=== PATIENT | male | born 1955 | race American Indian/Alaskan Native ===

== ENCOUNTER 2019-07-23 17:33 | Inpatient (IN) | payer MEDICARE ==
--- NOTE | 2019-07-23 17:46 | Emergency Department Report ---
Blank Doc - Documentation Documentation: 64-year-old male that presents with abdominal pain with osteomy complications. This initial assessment/diagnostic orders/clinical plan/treatment(s) is/are subject to change based on patient's health status, clinical progression and re- assessment by fellow clinical providers in the ED. Further treatment and workup at subsequent clinical providers discretion. Patient/guardians urged not to elope from the ED as their condition may be serious if not clinically assessed and managed. Initial orders include: 1- Patient sent to MAIN ED for further evaluation and treatment 2- labs 3- UA
[2019-07-23 19:01] LABS: Basophils % (Auto) 0.2 % (0.0-1.8); Eosinophils % (Auto) 0.3 % (0.0-4.3); Hematocrit 43.4 % (35.5-45.6); Hemoglobin 14.4 gm/dl (11.8-15.2); Lymphocytes # (Auto) 0.9 K/mm3 (1.2-5.4); Lymphocytes % (Auto) 12.8 % (13.4-35.0); Mean Corpuscular HGB Conc 33 % (32-34); Mean Corpuscular Volume 89 fl (84-94); Monocytes # (Auto) 0.4 K/mm3 (0.0-0.8); Monocytes % (Auto) 6.4 % (0.0-7.3); Platelet Count 186 K/mm3 (140-440); Red Blood Count 4.86 M/mm3 (3.65-5.03); Red Cell Distribution Width 13.7 % (13.2-15.2)
[2019-07-23 19:07] LABS: Alanine Aminotransferase 8 units/L (7-56); Albumin 4.3 g/dL (3.9-5); BUN/Creatinine Ratio 12; Blood Urea Nitrogen 13 mg/dL (9-20); Calcium 10.1 mg/dL (8.4-10.2); Hemolysis Index 18
[2019-07-23] MEDS ORDERED: ONDANSETRON 4 MG/2 ML INJ IV ONE (22:24)
[2019-07-23] MEDS ORDERED: MORPHINE 4 MG/1 ML INJ IV ONE (22:24)
[2019-07-23] MEDS ORDERED: SODIUM CHLORIDE 0.9% 1000 ML 1,000 ML IV ONE (22:24)
--- NOTE | 2019-07-23 22:39 | Emergency Department Report ---
ED Abdominal Pain HPI - General Chief Complaint: Abdominal Pain Stated Complaint: OSTOMY BAG BLOCKAGE Time Seen by Provider: 07/23/19 17:45 Source: patient Mode of arrival: Ambulatory Limitations: No Limitations - History of Present Illness Initial Comments: 64-year-old male with a past medical history of Crohn's disease and ileostomy since 1999 presents to the hospital complaining of no output from ostomy for at least 36 hours. He's had generalized intermittent cramping abdominal pain rated 10/10 in intensity that is worse with palpation. No alleviating factors reported. Patient does not take pain medication at home. He reports some nausea without vomiting. No fever. He cannot recall the name of his GI doctor or PMD. Severity scale (0 -10): 10 - Related Data Allergies Allergy/AdvReac Type Severity Reaction Status Date / Time No Known Allergies Allergy Unverified 07/23/19 17:36 ED Review of Systems ROS: Stated complaint: OSTOMY BAG BLOCKAGE Other details as noted in HPI Comment: All other systems reviewed and negative ED Past Medical Hx - Past Medical History Previous Medical History?: Yes Additional medical history: Chron's - Surgical History Past Surgical History?: Yes Additional Surgical History: Ileostomy s/t Chron's, colectomy. Back surgery - Social History Smoking Status: Never Smoker Substance Use Type: None ED Physical Exam - General Limitations: No Limitations - Other Other exam information: General: No acute distress Head: Atraumatic Eyes: normal appearance ENT: Moist mucous membranes Neck: Normal appearance, no midline tenderness Chest: Clear to auscultation bilaterally CV: Regular rate and rhythm Abdomen: Soft, normal bowel sounds, midline vertical surgical scar, right lower quadrant ostomy without any output in the bag. No ostomy herniation. Generalized tenderness Back: Normal inspection Extremity: Normal inspection infection, full range of motion Neuro: Alert O x 3, no facial asymmetry, speech clear, no gross motor sensory deficit Psych: Appropriate behavior Skin: No rash ED Course Vital Signs 07/23/19 07/23/19 07/23/19 17:45 21:55 22:17 Temperature 97.7 F 98.5 F 98.1 F Pulse Rate 64 73 62 Respiratory 18 20 15 Rate Blood Pressure 121/70 127/74 Blood Pressure 124/82 [Left] O2 Sat by Pulse 100 98 99 Oximetry 07/23/19 07/23/19 07/23/19 22:30 23:00 23:30 Temperature Pulse Rate Respiratory Rate Blood Pressure 127/76 138/78 137/79 Blood Pressure [Left] O2 Sat by Pulse 100 100 99 Oximetry - Consultations Consultation #1: 07/24/19 01:02 case d/w Gen surgeon Dr Johnson, since pt not vomiting no NGT now, if vomiting occurs NGT will be needed. Will eval pt in am. ED Medical Decision Making - Lab Data Result diagrams: 07/23/19 18:06 07/23/19 18:06 Lab Results 07/23/19 07/23/19 Range/Units 18:06 18:06 WBC 6.7 (4.5-11.0) K/mm3 RBC 4.86 (3.65-5.03) M/mm3 Hgb 14.4 (11.8-15.2) gm/dl Hct 43.4 (35.5-45.6) % MCV 89 (84-94) fl MCH 30 (28-32) pg MCHC 33 (32-34) % RDW 13.7 (13.2-15.2) % Plt Count 186 (140-440) K/mm3 Lymph % (Auto) 12.8 L (13.4-35.0) % [place] % (Auto) 6.4 (0.0-7.3) % Eos % (Auto) 0.3 (0.0-4.3) % Baso % (Auto) 0.2 (0.0-1.8) % Lymph # 0.9 L (1.2-5.4) K/mm3 [place] # 0.4 (0.0-0.8) K/mm3 Eos # 0.0 (0.0-0.4) K/mm3 Baso # 0.0 (0.0-0.1) K/mm3 Seg Neutrophils % 80.3 H (40.0-70.0) % Seg Neutrophils # 5.4 (1.8-7.7) K/mm3 Sodium 140 (137-145) mmol/L Potassium 4.8 (3.6-5.0) mmol/L Chloride 102.6 (98-107) mmol/L Carbon Dioxide 23 (22-30) mmol/L Anion Gap 19 mmol/L BUN 13 (9-20) mg/dL Creatinine 1.1 (0.8-1.5) mg/dL Estimated GFR > 60 ml/min BUN/Creatinine Ratio 12 % Glucose 92 (75-100) mg/dL Calcium 10.1 (8.4-10.2) mg/dL Total Bilirubin 0.90 (0.1-1.2) mg/dL AST 21 (5-40) units/L ALT 8 (7-56) units/L Alkaline Phosphatase 70 (35-129) units/L Total Protein 7.3 (6.3-8.2) g/dL Albumin 4.3 (3.9-5) g/dL Albumin/Globulin Ratio 1.4 % Lipase 23 (13-60) units/L - Radiology Data Radiology results: report reviewed CT of the abdomen and pelvis with contrast INDICATION: Abdominal pain, Crohn's disease COMPARISON: None FINDINGS: Lung bases are clear. Hypervascular area is seen in the left hepatic lobe which is nonspecific, either due to liver lesion o r shunting. Liver is otherwise unremarkable. A few low-density splenic lesions are likely cysts and benign. The pancreas is normal with no ductal dilation, mass or pancreatitis. The left kidney contains a 1 cm stone in the lower pole. Right renal calculi are seen with the right ureteral stent in place and slight right renal atrophy. No definite gallbladder or biliary tree abnormality. No fluid or adenopathy in the upper abdomen. CT of the pelvis demonstrates multiple fluid-filled small bowel loops with apparent prior colectomy. There is an ostomy present in the right lower quadrant but the distal small bowel loops are collapsed. Prostate is moderately enlarged. The distal ureteral stent is heavily encrusted with calcium. No bladder stones are seen. No pelvic fluid or adenopathy. No definite bowel wall thickening or edema. Postoperative changes of the lumbar spine are seen. IMPRESSION: Distal mechanical small bowel obstruction of moderate severity with other incidental findings as described. - Medical Decision Making + sbo without vomiting case d/w Dr Johnson will admit for further tx - Differential Diagnosis obstruction, ostomy blockage Critical Care Time: No Critical care attestation.: If time is entered above; I have spent that time in minutes in the direct care of this critically ill patient, excluding procedure time. ED Disposition Clinical Impression: SBO (small bowel obstruction), History of colectomy, Ileostomy dysfunction Disposition: OP ADMIT IP TO THIS HOSP Is pt being admited?: Yes Condition: Stable Time of Disposition: 01:05 (Dr Tuttle/hosp)
--- NOTE | 2019-07-24 00:45 | Cat Scan Report ---
CT of the abdomen and pelvis with contrast INDICATION: Abdominal pain, Crohn's disease COMPARISON: None FINDINGS: Lung bases are clear. Hypervascular area is seen in the left hepatic lobe which is nonspeci fic, either due to liver lesion or shunting. Liver is otherwise unremarkable. A few low-density splen ic lesions are likely cysts and benign. The pancreas is normal with no ductal dilation, mass or pancr eatitis. The left kidney contains a 1 cm stone in the lower pole. Right renal calculi are seen with t he right ureteral stent in place and slight right renal atrophy. No definite gallbladder or biliary t ree abnormality. No fluid or adenopathy in the upper abdomen. CT of the pelvis demonstrates multiple fluid-filled small bowel loops with apparent prior colectomy. There is an ostomy present in the right lower quadrant but the distal small bowel loops are collapsed . Prostate is moderately enlarged. The distal ureteral stent is heavily encrusted with calcium. No bl adder stones are seen. No pelvic fluid or adenopathy. No definite bowel wall thickening or edema. Pos toperative changes of the lumbar spine are seen. IMPRESSION: Distal mechanical small bowel obstruction of moderate severity with other incidental find ings as described. Automated exposure control was utilized to diminish radiation dose. Signer Name: Jose Cox MD Signed: 07/24/2019 12:40 AM Workstation Name: [id number]
--- NOTE | 2019-07-24 01:11 | History and Physical Report ---
<ROHINIFABRIZIO M. - Last Filed: 07/24/19 03:16> History of Present Illness Date of examination: 07/24/19 Date of admission: 07/24/2019 Chief complaint: SBO History of present illness: Patient is a 64-year-old male with a past medical history of Crohn's dx whom presents to [facility]. Patient states his concerns were lack of output for the past 36 hours from his ileostomy accompanied with abdominal cramping. His ileostomy was placed in 1999 after a perforated bowel. Currently the pain is described as a constant dull diffuse pain that intermittently becomes sharp and well localized. The intensity of the pain has been increasing over the past day, and on pain scale he now rates the pain 8 out of 10. He denies any recent history of fever, diarrhea or melena. Past History Past Medical History: other (as noted in HPI) Past Surgical History: Other (kidney stones, spine surgery (1997)) Social history: smoking (x 1 yr), alcohol abuse Family history: cancer, diabetes, hypertension Medications and Allergies Allergies Allergy/AdvReac Type Severity Reaction Status Date / Time No Known Allergies Allergy Unverified 07/23/19 17:36 Home Medications Medication Instructions Recorded Confirmed Last Taken Type No Known Home Medications [No 07/24/19 07/24/19 Unknown History Reported Home Medications] Review of Systems All systems: negative Constitutional: no fever, no chills, no sweats Ears, nose, mouth and throat: no decreased hearing, no nose pain, no nasal congestion Cardiovascular: no chest pain, no rapid/irregular heart beat, no high blood pressure Respiratory: no cough, no shortness of breath Gastrointestinal: abdominal pain, no nausea, no vomiting, no diarrhea Genitourinary Male: no urinary frequency, no urinary hesitancy Rectal: no pain, no incontinence Musculoskeletal: no neck stiffness, no neck pain, no arm numbness/tingling, no shooting leg pain, no redness of joints Integumentary: no rash Neurological: no head injury, no numbness, no tingling, no seizures, no lack of coordination Psychiatric: no suicidal ideation, no disorientation, no hallucinations Endocrine: no heat intolerance, no polyphagia, no excessive sweating Hematologic/Lymphatic: no easy bruising, no easy bleeding Allergic/Immunologic: no wheezing Exam - Physical Exam Narrative exam: General appearance: Present: Mild distress - EENT Eyes: Present: PERRL, EOM intact ENT: hearing intact - Neck Neck: Present: supple, normal ROM - Respiratory Respiratory effort: normal Respiratory: bilateral: CTA - Cardiovascular Rhythm: regular - Extremities Extremities: pulses intact Peripheral Pulses: within normal limits - Abdominal General gastrointestinal: Present: tender with palpation Localized gastrointestinal: tender: RUQ, ileostomy present - Integumentary Integumentary: Present: warm, dry - Musculoskeletal Musculoskeletal: strength equal bilaterally - Psychiatric Psychiatric: appropriate mood/affect - Neurologic Neurologic: CNII-XII intact - Constitutional Vitals: Temp Pulse Resp BP Pulse Ox 98.1 F 62 15 137/79 99 07/23/19 22:17 07/23/19 22:17 07/23/19 22:17 07/23/19 23:30 07/23/19 23:30 Results - Labs CBC & Chem 7: 07/23/19 18:06 07/23/19 18:06 Labs: Laboratory Last Values WBC 6.7 K/mm3 (4.5-11.0) 07/23/19 18:06 RBC 4.86 M/mm3 (3.65-5.03) 07/23/19 18:06 Hgb 14.4 gm/dl (11.8-15.2) 07/23/19 18:06 Hct 43.4 % (35.5-45.6) 07/23/19 18:06 MCV 89 fl (84-94) 07/23/19 18:06 MCH 30 pg (28-32) 07/23/19 18:06 MCHC 33 % (32-34) 07/23/19 18:06 RDW 13.7 % (13.2-15.2) 07/23/19 18:06 Plt Count 186 K/mm3 (140-440) 07/23/19 18:06 Lymph % (Auto) 12.8 % (13.4-35.0) L 07/23/19 18:06 [place] % (Auto) 6.4 % (0.0-7.3) 07/23/19 18:06 Eos % (Auto) 0.3 % (0.0-4.3) 07/23/19 18:06 Baso % (Auto) 0.2 % (0.0-1.8) 07/23/19 18:06 Lymph # 0.9 K/mm3 (1.2-5.4) L 07/23/19 18:06 [place] # 0.4 K/mm3 (0.0-0.8) 07/23/19 18:06 Eos # 0.0 K/mm3 (0.0-0.4) 07/23/19 18:06 Baso # 0.0 K/mm3 (0.0-0.1) 07/23/19 18:06 Seg Neutrophils % 80.3 % (40.0-70.0) H 07/23/19 18:06 Seg Neutrophils # 5.4 K/mm3 (1.8-7.7) 07/23/19 18:06 Sodium 140 mmol/L (137-145) 07/23/19 18:06 Potassium 4.8 mmol/L (3.6-5.0) 07/23/19 18:06 Chloride 102.6 mmol/L (98-107) 07/23/19 18:06 Carbon Dioxide 23 mmol/L (22-30) 07/23/19 18:06 Anion Gap 19 mmol/L 07/23/19 18:06 BUN 13 mg/dL (9-20) 07/23/19 18:06 Creatinine 1.1 mg/dL (0.8-1.5) 07/23/19 18:06 Estimated GFR > 60 ml/min 07/23/19 18:06 BUN/Creatinine Ratio 12 % 07/23/19 18:06 Glucose 92 mg/dL (75-100) 07/23/19 18:06 Calcium 10.1 mg/dL (8.4-10.2) 07/23/19 18:06 Total Bilirubin 0.90 mg/dL (0.1-1.2) 07/23/19 18:06 AST 21 units/L (5-40) 07/23/19 18:06 ALT 8 units/L (7-56) 07/23/19 18:06 Alkaline Phosphatase 70 units/L (35-129) 07/23/19 18:06 Total Protein 7.3 g/dL (6.3-8.2) 07/23/19 18:06 Albumin 4.3 g/dL (3.9-5) 07/23/19 18:06 Albumin/Globulin Ratio 1.4 % 07/23/19 18:06 Lipase 23 units/L (13-60) 07/23/19 18:06 - Imaging and Cardiology CT scan - abdomen: report reviewed (Distal mechanical small bowel obstruction of moderate severity. Left kidney; 1 cm stone, moderately enlarged prostate. ) Assessment and Plan Assessment and plan: Patient is a 64-year-old male with a past medical history of kidney stones and Crohn's dx whom presents to [facility] with stomach cramping and nausea. Patient admits 8 out of 10 pain on examination, denies nausea at this time. Small bowel obstruction -Surgical consult -IV fluids, pain management prn -Patient NPO Tobacco abuse -Current every day smoker -Supportive care -Smoking cessation counseling +15 minute -Advised nicotine patch as needed DVT prophylaxis -SCD to BLE while in bed VTE prophylaxis?: Mechanical Reason for no VTE Prophylaxis: Surgical contraindication Plan of care discussed with patient/family: Yes <NELDA LUBIN - Last Filed: 07/24/19 05:46> History of Present Illness Date of admission: 07/24/19 01:12 Medications and Allergies Active Meds: Active Medications Hydromorphone HCl (Dilaudid) 0.5 mg IV Q3H PRN PRN Reason: Pain , Severe (7-10) Last Admin: 07/24/19 05:14 Dose: 0.5 mg Documented by: Sodium Chloride (Nacl 0.9% 1000 Ml) 1,000 mls @ 100 mls/hr IV DIRECT JEZ Last Admin: 07/24/19 05:08 Dose: 100 mls/hr Documented by: Morphine Sulfate (Morphine) 2 mg IV Q4H PRN PRN Reason: Pain, Moderate (4-6) Last Admin: 07/24/19 02:29 Dose: 2 mg Documented by: Ondansetron HCl (Zofran) 4 mg IV Q8H PRN PRN Reason: Nausea And Vomiting Last Admin: 07/24/19 05:17 Dose: 4 mg Documented by: Sodium Chloride (Sodium Chloride Flush Syringe 10 Ml) 10 ml IV BID JEZ Sodium Chloride (Sodium Chloride Flush Syringe 10 Ml) 10 ml IV PRN PRN PRN Reason: LINE FLUSH Exam - Constitutional Vitals: Temp Pulse Resp BP Pulse Ox 97.8 F 57 L 17 146/85 99 07/24/19 04:25 07/24/19 04:25 07/24/19 04:25 07/24/19 04:25 07/24/19 04:25 Results - Labs CBC & Chem 7: 07/23/19 18:06 07/23/19 18:06 Labs: Laboratory Last Values WBC 6.7 K/mm3 (4.5-11.0) 07/23/19 18:06 RBC 4.86 M/mm3 (3.65-5.03) 07/23/19 18:06 Hgb 14.4 gm/dl (11.8-15.2) 07/23/19 18:06 Hct 43.4 % (35.5-45.6) 07/23/19 18:06 MCV 89 fl (84-94) 07/23/19 18:06 MCH 30 pg (28-32) 07/23/19 18:06 MCHC 33 % (32-34) 07/23/19 18:06 RDW 13.7 % (13.2-15.2) 07/23/19 18:06 Plt Count 186 K/mm3 (140-440) 07/23/19 18:06 Lymph % (Auto) 12.8 % (13.4-35.0) L 07/23/19 18:06 [place] % (Auto) 6.4 % (0.0-7.3) 07/23/19 18:06 Eos % (Auto) 0.3 % (0.0-4.3) 07/23/19 18:06 Baso % (Auto) 0.2 % (0.0-1.8) 07/23/19 18:06 Lymph # 0.9 K/mm3 (1.2-5.4) L 07/23/19 18:06 [place] # 0.4 K/mm3 (0.0-0.8) 07/23/19 18:06 Eos # 0.0 K/mm3 (0.0-0.4) 07/23/19 18:06 Baso # 0.0 K/mm3 (0.0-0.1) 07/23/19 18:06 Seg Neutrophils % 80.3 % (40.0-70.0) H 07/23/19 18:06 Seg Neutrophils # 5.4 K/mm3 (1.8-7.7) 07/23/19 18:06 Sodium 140 mmol/L (137-145) 07/23/19 18:06 Potassium 4.8 mmol/L (3.6-5.0) 07/23/19 18:06 Chloride 102.6 mmol/L (98-107) 07/23/19 18:06 Carbon Dioxide 23 mmol/L (22-30) 07/23/19 18:06 Anion Gap 19 mmol/L 07/23/19 18:06 BUN 13 mg/dL (9-20) 07/23/19 18:06 Creatinine 1.1 mg/dL (0.8-1.5) 07/23/19 18:06 Estimated GFR > 60 ml/min 07/23/19 18:06 BUN/Creatinine Ratio 12 % 07/23/19 18:06 Glucose 92 mg/dL (75-100) 07/23/19 18:06 Calcium 10.1 mg/dL (8.4-10.2) 07/23/19 18:06 Total Bilirubin 0.90 mg/dL (0.1-1.2) 07/23/19 18:06 AST 21 units/L (5-40) 07/23/19 18:06 ALT 8 units/L (7-56) 07/23/19 18:06 Alkaline Phosphatase 70 units/L (35-129) 07/23/19 18:06 Total Protein 7.3 g/dL (6.3-8.2) 07/23/19 18:06 Albumin 4.3 g/dL (3.9-5) 07/23/19 18:06 Albumin/Globulin Ratio 1.4 % 07/23/19 18:06 Lipase 23 units/L (13-60) 07/23/19 18:06 Assessment and Plan Assessment and plan: Patient seen and examined, agree with plan as stated above
[2019-07-24] MEDS ORDERED: MORPHINE 2 MG/1 ML INJ IV PRN (01:12)
[2019-07-24] MEDS ORDERED: ONDANSETRON 4 MG/2 ML INJ IV PRN (01:12)
[2019-07-24] MEDS: SODIUM CHLORIDE 0.9% 1000 ML 1,000 ML IV SCH (05:08)
[2019-07-24] MEDS: HYDROmorphone 1 MG/1 ML INJ IV PRN ×3 (05:14→13:20)
--- NOTE | 2019-07-24 09:35 | Consultation ---
History of Present Illness Consult date: 07/24/19 Reason for consult: other (small bowel obstruction) Chief complaint: abdominal pain and no ostomy output - History of present illness History of present illness: 64 year old male presented to ED with a 36 hour history of no ostomy output and increasing abdominal pain. He says he has some nausea but no vomiting. He also says he has had small bowel obstructions before that resolved without surgical intervention. Due to crohn's disease, he had a colectomy and ileostomy in 1999. Since admission to the ED he has minimal air and liquid out put from the ostomy, although his CT a/p showed a distal mechanical small bowel obstruction with dilated small bowel loops and stomach. Past History Past Medical History: other (as noted in HPI) Past Surgical History: Other (kidney stones, spine surgery (1997)) Social history: smoking (x 1 yr), alcohol abuse Family history: cancer, diabetes, hypertension Medications and Allergies Allergies Allergy/AdvReac Type Severity Reaction Status Date / Time No Known Allergies Allergy Unverified 07/23/19 17:36 Home Medications Medication Instructions Recorded Confirmed Last Taken Type No Known Home Medications [No 07/24/19 07/24/19 Unknown History Reported Home Medications] Active Meds: Active Medications Hydromorphone HCl (Dilaudid) 0.5 mg IV Q3H PRN PRN Reason: Pain , Severe (7-10) Last Admin: 07/24/19 09:02 Dose: 0.5 mg Documented by: Sodium Chloride (Nacl 0.9% 1000 Ml) 1,000 mls @ 100 mls/hr IV DIRECT JEZ Last Admin: 07/24/19 05:08 Dose: 100 mls/hr Documented by: Morphine Sulfate (Morphine) 2 mg IV Q4H PRN PRN Reason: Pain, Moderate (4-6) Last Admin: 07/24/19 02:29 Dose: 2 mg Documented by: Ondansetron HCl (Zofran) 4 mg IV Q8H PRN PRN Reason: Nausea And Vomiting Last Admin: 07/24/19 05:17 Dose: 4 mg Documented by: Sodium Chloride (Sodium Chloride Flush Syringe 10 Ml) 10 ml IV BID JEZ Sodium Chloride (Sodium Chloride Flush Syringe 10 Ml) 10 ml IV PRN PRN PRN Reason: LINE FLUSH Review of Systems - Cardiovascular no chest pain - Respiratory no shortness of breath - Gastrointestinal abdominal pain, nausea, no vomiting Exam Vital Signs Temp Pulse Resp BP Pulse Ox 97.7 F 64 18 121/70 100 07/23/19 17:45 07/23/19 17:45 07/23/19 17:45 07/23/19 17:45 07/23/19 17:45 - General physical appearance Positive: well developed, no distress - Respiratory Positive: normal expansion, normal respiratory effort - Extremities Extremities: no ischemia Extremity abnormal: other (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 ). Absent: distended Results - Labs 07/23/19 18:06 07/23/19 18:06 Abnormal lab results 07/23/19 Range/Units 18:06 Lymph % (Auto) 12.8 L (13.4-35.0) % Lymph # 0.9 L (1.2-5.4) K/mm3 Seg Neutrophils % 80.3 H (40.0-70.0) % Diabetes panel 07/23/19 Range/Units 18:06 Sodium 140 (137-145) mmol/L Potassium 4.8 (3.6-5.0) mmol/L Chloride 102.6 (98-107) mmol/L Carbon Dioxide 23 (22-30) mmol/L BUN 13 (9-20) mg/dL Creatinine 1.1 (0.8-1.5) mg/dL Glucose 92 (75-100) mg/dL Calcium 10.1 (8.4-10.2) mg/dL AST 21 (5-40) units/L ALT 8 (7-56) units/L Alkaline Phosphatase 70 (35-129) units/L Total Protein 7.3 (6.3-8.2) g/dL Albumin 4.3 (3.9-5) g/dL Calcium panel 07/23/19 Range/Units 18:06 Calcium 10.1 (8.4-10.2) mg/dL Albumin 4.3 (3.9-5) g/dL Pituitary panel 07/23/19 Range/Units 18:06 Sodium 140 (137-145) mmol/L Potassium 4.8 (3.6-5.0) mmol/L Chloride 102.6 (98-107) mmol/L Carbon Dioxide 23 (22-30) mmol/L BUN 13 (9-20) mg/dL Creatinine 1.1 (0.8-1.5) mg/dL Glucose 92 (75-100) mg/dL Calcium 10.1 (8.4-10.2) mg/dL Adrenal panel 07/23/19 Range/Units 18:06 Sodium 140 (137-145) mmol/L Potassium 4.8 (3.6-5.0) mmol/L Chloride 102.6 (98-107) mmol/L Carbon Dioxide 23 (22-30) mmol/L BUN 13 (9-20) mg/dL Creatinine 1.1 (0.8-1.5) mg/dL Glucose 92 (75-100) mg/dL Calcium 10.1 (8.4-10.2) mg/dL Total Bilirubin 0.90 (0.1-1.2) mg/dL AST 21 (5-40) units/L ALT 8 (7-56) units/L Alkaline Phosphatase 70 (35-129) units/L Total Protein 7.3 (6.3-8.2) g/dL Albumin 4.3 (3.9-5) g/dL - Imaging CT scan - abdomen: report reviewed, image reviewed CT scan - pelvis: report reviewed, image reviewed Assessment and Plan simple mechanical small bowel obstruction with a hx of Crohn's disease. stable, afebrile. Hopefully air and fluid in ostomy bag are a sign of resolving obstruction. Due to significant small bowel and stomach dilation will place NGT and monitor output, and hope to relieve pressure to further encourage relieve of obstruction. continue IV hydration, and NPO. will follow with you
[2019-07-24 11:16] LABS: Bacteria,Urine 1+ /HPF (Negative); Bilirubin,Urine NEG (Negative); Blood,Urine LG (Negative); Color,Urine Yellow (Yellow); Mucus,Urine FEW /HPF; Urobilinogen,Urine < 2.0 mg/dL (<2.0)
--- NOTE | 2019-07-24 16:26 | Event Note ---
Date: 07/24/19 Patient is 64 yo with ileostomy. Diagnosed with small bowel obstruction. I have seen and examined him. Continue current managemnent.
[2019-07-24] MEDS: cefTRIAXone/NS 1 GM/50 ML 1 GM/50 ML BAG IV SCH (20:38)
[2019-07-25 08:24] LABS: Hematocrit 38.3 % (35.5-45.6); Hemoglobin 12.9 gm/dl (11.8-15.2); Mean Corpuscular HGB Conc 34 % (32-34); Mean Corpuscular Volume 90 fl (84-94); Red Blood Count 4.25 M/mm3 (3.65-5.03); Red Cell Distribution Width 14.1 % (13.2-15.2)
[2019-07-25 08:38] LABS: BUN/Creatinine Ratio 17; Blood Urea Nitrogen 17 mg/dL (9-20); Hemolysis Index 11
[2019-07-25] MEDS: SODIUM CHLORIDE 0.9% 1000 ML 1,000 ML IV SCH (09:13)
[2019-07-25] MEDS: cefTRIAXone/NS 1 GM/50 ML 1 GM/50 ML BAG IV SCH (09:13)
[2019-07-25 10:28] LABS: Basophils % (Manual) 0 % (0.0-1.8); Eosinophils % (Manual) 0 % (0.0-4.3); Total Cells Counted 100
[2019-07-25 10:29] LABS: Platelet Estimate Consistent w Auto
[2019-07-25 10:47] LABS: Platelet Count 144 K/mm3 (140-440)
--- NOTE | 2019-07-25 11:39 | Progress Note ---
Assessment and Plan Assessment and plan: Patient is a 64-year-old male with a past medical history of kidney stones and Crohn's dx whom presents to [facility] with stomach cramping and nausea. Patient admits 8 out of 10 pain on examination, denies nausea at this time. Small bowel obstruction -Surgical consult ordered. Surgeon following Conservative management for now -IV fluids, pain management prn -Patient NPO Tobacco abuse -Current every day smoker -Supportive care -Smoking cessation counseling +15 minute -Advised nicotine patch as needed DVT prophylaxis -SCD to BLE while in bed History Interval history: Less abd pain Hospitalist Physical - Physical exam Narrative exam: Gen: Not in acute distress, lying in bed, HEENT: Normocephalic, atraumatic Neck: supple, no JVD Heart: S1 and S2 reg, no murmurs, rubs or gallop Lungs: Clear, no crackles Abd: soft, non tender , ostomy bag, decreased bowel sounds Ext: No edema, no clubbing, no cyanosis Neuro: Awake,alert, oriented, moves all ext - Constitutional Vitals: Temp Pulse Resp BP Pulse Ox 97.9 F 72 18 118/72 98 07/25/19 07:45 07/25/19 07:45 07/25/19 07:45 07/25/19 07:45 07/25/19 07:45 Results - Labs CBC & Chem 7: 07/25/19 07:11 07/25/19 07:11 Labs: Laboratory Last Values WBC 8.3 K/mm3 (4.5-11.0) 07/25/19 07:11 RBC 4.25 M/mm3 (3.65-5.03) 07/25/19 07:11 Hgb 12.9 gm/dl (11.8-15.2) 07/25/19 07:11 Hct 38.3 % (35.5-45.6) 07/25/19 07:11 MCV 90 fl (84-94) 07/25/19 07:11 MCH 30 pg (28-32) 07/25/19 07:11 MCHC 34 % (32-34) 07/25/19 07:11 RDW 14.1 % (13.2-15.2) 07/25/19 07:11 Plt Count 144 K/mm3 (140-440) 07/25/19 07:11 Lymph % (Auto) 12.8 % (13.4-35.0) L 07/23/19 18:06 [place] % (Auto) 6.4 % (0.0-7.3) 07/23/19 18:06 Eos % (Auto) 0.3 % (0.0-4.3) 07/23/19 18:06 Baso % (Auto) 0.2 % (0.0-1.8) 07/23/19 18:06 Lymph # 0.9 K/mm3 (1.2-5.4) L 07/23/19 18:06 [place] # 0.4 K/mm3 (0.0-0.8) 07/23/19 18:06 Eos # 0.0 K/mm3 (0.0-0.4) 07/23/19 18:06 Baso # 0.0 K/mm3 (0.0-0.1) 07/23/19 18:06 Add Manual Diff Complete 07/25/19 07:11 Total Counted 100 07/25/19 07:11 Seg Neutrophils % 80.3 % (40.0-70.0) H 07/23/19 18:06 Seg Neuts % (Manual) 87.0 % (40.0-70.0) H 07/25/19 07:11 Band Neutrophils % 0 % 07/25/19 07:11 Lymphocytes % (Manual) 7.0 % (13.4-35.0) L 07/25/19 07:11 Reactive Lymphs % (Man) 0 % 07/25/19 07:11 Monocytes % (Manual) 6.0 % (0.0-7.3) 07/25/19 07:11 Eosinophils % (Manual) 0 % (0.0-4.3) 07/25/19 07:11 Basophils % (Manual) 0 % (0.0-1.8) 07/25/19 07:11 Metamyelocytes % 0 % 07/25/19 07:11 Myelocytes % 0 % 07/25/19 07:11 Promyelocytes % 0 % 07/25/19 07:11 Blast Cells % 0 % 07/25/19 07:11 Nucleated RBC % Not Reportable 07/25/19 07:11 Seg Neutrophils # 5.4 K/mm3 (1.8-7.7) 07/23/19 18:06 Seg Neutrophils # Man 7.2 K/mm3 (1.8-7.7) 07/25/19 07:11 Band Neutrophils # 0.0 K/mm3 07/25/19 07:11 Lymphocytes # (Manual) 0.6 K/mm3 (1.2-5.4) L 07/25/19 07:11 Abs React Lymphs (Man) 0.0 K/mm3 07/25/19 07:11 Monocytes # (Manual) 0.5 K/mm3 (0.0-0.8) 07/25/19 07:11 Eosinophils # (Manual) 0.0 K/mm3 (0.0-0.4) 07/25/19 07:11 Basophils # (Manual) 0.0 K/mm3 (0.0-0.1) 07/25/19 07:11 Metamyelocytes # 0.0 K/mm3 07/25/19 07:11 Myelocytes # 0.0 K/mm3 07/25/19 07:11 Promyelocytes # 0.0 K/mm3 07/25/19 07:11 Blast Cells # 0.0 K/mm3 07/25/19 07:11 WBC Morphology Not Reportable 07/25/19 07:11 Hypersegmented Neuts Not Reportable 07/25/19 07:11 Hyposegmented Neuts Not Reportable 07/25/19 07:11 Hypogranular Neuts Not Reportable 07/25/19 07:11 Smudge Cells Not Reportable 07/25/19 07:11 Toxic Granulation Not Reportable 07/25/19 07:11 Toxic Vacuolation Not Reportable 07/25/19 07:11 Dohle Bodies Not Reportable 07/25/19 07:11 Pelger-Huet Anomaly Not Reportable 07/25/19 07:11 Qing Rods Not Reportable 07/25/19 07:11 Platelet Estimate Consistent w auto 07/25/19 07:11 Clumped Platelets Not Reportable 07/25/19 07:11 Plt Clumps, EDTA Not Reportable 07/25/19 07:11 Large Platelets Not Reportable 07/25/19 07:11 Giant Platelets Not Reportable 07/25/19 07:11 Platelet Satelliting Not Reportable 07/25/19 07:11 Plt Morphology Comment Not Reportable 07/25/19 07:11 RBC Morphology Not Reportable 07/25/19 07:11 Dimorphic RBCs Not Reportable 07/25/19 07:11 Polychromasia Not Reportable 07/25/19 07:11 Hypochromasia Not Reportable 07/25/19 07:11 Poikilocytosis Not Reportable 07/25/19 07:11 Anisocytosis Not Reportable 07/25/19 07:11 Microcytosis Not Reportable 07/25/19 07:11 Macrocytosis Not Reportable 07/25/19 07:11 Spherocytes Not Reportable 07/25/19 07:11 Pappenheimer Bodies Not Reportable 07/25/19 07:11 Sickle Cells Not Reportable 07/25/19 07:11 Target Cells Not Reportable 07/25/19 07:11 Tear Drop Cells Not Reportable 07/25/19 07:11 Ovalocytes Not Reportable 07/25/19 07:11 Helmet Cells Not Reportable 07/25/19 07:11 [place] Bodies Not Reportable 07/25/19 07:11 [place] Rings Not Reportable 07/25/19 07:11 Rosita Cells Not Reportable 07/25/19 07:11 Bite Cells Not Reportable 07/25/19 07:11 Crenated Cell Not Reportable 07/25/19 07:11 Elliptocytes Few 07/25/19 07:11 Acanthocytes (Spur) Not Reportable 07/25/19 07:11 Rouleaux Not Reportable 07/25/19 07:11 Hemoglobin C Crystals Not Reportable 07/25/19 07:11 Schistocytes Not Reportable 07/25/19 07:11 Malaria parasites Not Reportable 07/25/19 07:11 Ranjith Bodies Not Reportable 07/25/19 07:11 Hem Pathologist Commnt No 07/25/19 07:11 Sodium 141 mmol/L (137-145) 07/25/19 07:11 Potassium 3.7 mmol/L (3.6-5.0) D 07/25/19 07:11 Chloride 103.4 mmol/L (98-107) 07/25/19 07:11 Carbon Dioxide 22 mmol/L (22-30) 07/25/19 07:11 Anion Gap 19 mmol/L 07/25/19 07:11 BUN 17 mg/dL (9-20) 07/25/19 07:11 Creatinine 1.0 mg/dL (0.8-1.5) 07/25/19 07:11 Estimated GFR > 60 ml/min 07/25/19 07:11 BUN/Creatinine Ratio 17 % 07/25/19 07:11 Glucose 63 mg/dL (75-100) L 07/25/19 07:11 Calcium 9.0 mg/dL (8.4-10.2) 07/25/19 07:11 Total Bilirubin 0.90 mg/dL (0.1-1.2) 07/23/19 18:06 AST 21 units/L (5-40) 07/23/19 18:06 ALT 8 units/L (7-56) 07/23/19 18:06 Alkaline Phosphatase 70 units/L (35-129) 07/23/19 18:06 Total Protein 7.3 g/dL (6.3-8.2) 07/23/19 18:06 Albumin 4.3 g/dL (3.9-5) 07/23/19 18:06 Albumin/Globulin Ratio 1.4 % 07/23/19 18:06 Lipase 23 units/L (13-60) 07/23/19 18:06 Urine Color Yellow (Yellow) 07/24/19 08:52 Urine Turbidity Cloudy (Clear) 07/24/19 08:52 Urine pH 5.0 (5.0-7.0) 07/24/19 08:52 Ur Specific [place] 1.055 (1.003-1.030) H 07/24/19 08:52 Urine Protein 30 mg/dl mg/dL (Negative) 07/24/19 08:52 Urine Glucose (UA) Neg mg/dL (Negative) 07/24/19 08:52 Urine Ketones 20 mg/dL (Negative) 07/24/19 08:52 Urine Blood Lg (Negative) 07/24/19 08:52 Urine Nitrite Pos (Negative) 07/24/19 08:52 Urine Bilirubin Neg (Negative) 07/24/19 08:52 Urine Urobilinogen < 2.0 mg/dL (<2.0) 07/24/19 08:52 Ur Leukocyte Esterase Mod (Negative) 07/24/19 08:52 Urine WBC (Auto) 17.0 /HPF (0.0-6.0) H 07/24/19 08:52 Urine RBC (Auto) 146.0 /HPF (0.0-6.0) 07/24/19 08:52 Urine Bacteria (Auto) 1+ /HPF (Negative) 07/24/19 08:52 Urine Mucus Few /HPF 07/24/19 08:52 Urine Yeast (Budding) 1+ /HPF 07/24/19 08:52 Active Medications - Current Medications Current Medications: Generic Name Dose Route Start Last Admin Trade Name Freq PRN Reason Stop Dose Admin Sodium Chloride 1,000 mls @ 100 mls/hr 07/24/19 02:45 07/25/19 09:13 Nacl 0.9% 1000 Ml IV 100 mls/hr DIRECT JEZ Administration Ceftriaxone Sodium 1 gm in 50 mls @ 100 mls/hr 07/24/19 19:00 07/25/19 09:13 Rocephin/Ns 1 Gm/50 Ml IV 100 mls/hr Q24HR JEZ Administration Protocol Morphine Sulfate 2 mg 07/24/19 01:12 07/24/19 02:29 Morphine IV 2 mg Q4H PRN Administration Pain, Moderate (4-6) Ondansetron HCl 4 mg 07/24/19 01:12 07/24/19 05:17 Zofran IV 4 mg Q8H PRN Administration Nausea And Vomiting Sodium Chloride 10 ml 07/24/19 10:00 07/24/19 13:21 Sodium Chloride Flush Syringe 10 Ml IV 10 ml BID JEZ Administration Sodium Chloride 10 ml 07/24/19 01:12 Sodium Chloride Flush Syringe 10 Ml IV PRN PRN LINE FLUSH
--- NOTE | 2019-07-25 12:14 | Progress Note ---
Assessment and Plan simple mechanical small bowel obstruction, showing clinical signs of resolving. afebrile, stable will clamp NGT, start trial of clear liquids. if tolerates, will d/c ngt and advance diet as tolerated. pending no other issues possible dc tomorrow. Subjective Date of service: 07/25/19 Patient Reports: Positive: no new complaints (has had air and liquid out put from ostomy, says abdominal cramping has stopped), feels better Objective Vital Signs - 12hr 07/25/19 07/25/19 07/25/19 04:25 07:45 11:43 Temperature 97.8 F 97.9 F 98.0 F Pulse Rate 71 72 67 Respiratory 17 18 18 Rate Blood Pressure 116/73 126/70 Blood Pressure 118/72 [Left] O2 Sat by Pulse 97 98 98 Oximetry - General physical appearance well developed, no distress, no pain - Respiratory normal expansion, normal respiratory effort - Abdomen soft, not tender, not distended, other (ostomy in place with some liquid in the bag, minimal non bilious NGT output) - Labs 07/25/19 07:11 07/25/19 07:11 Diabetes panel 07/25/19 Range/Units 07:11 Sodium 141 (137-145) mmol/L Potassium 3.7 D (3.6-5.0) mmol/L Chloride 103.4 (98-107) mmol/L Carbon Dioxide 22 (22-30) mmol/L BUN 17 (9-20) mg/dL Creatinine 1.0 (0.8-1.5) mg/dL Glucose 63 L (75-100) mg/dL Calcium 9.0 (8.4-10.2) mg/dL Calcium panel 07/25/19 Range/Units 07:11 Calcium 9.0 (8.4-10.2) mg/dL Pituitary panel 07/25/19 Range/Units 07:11 Sodium 141 (137-145) mmol/L Potassium 3.7 D (3.6-5.0) mmol/L Chloride 103.4 (98-107) mmol/L Carbon Dioxide 22 (22-30) mmol/L BUN 17 (9-20) mg/dL Creatinine 1.0 (0.8-1.5) mg/dL Glucose 63 L (75-100) mg/dL Calcium 9.0 (8.4-10.2) mg/dL Adrenal panel 07/25/19 Range/Units 07:11 Sodium 141 (137-145) mmol/L Potassium 3.7 D (3.6-5.0) mmol/L Chloride 103.4 (98-107) mmol/L Carbon Dioxide 22 (22-30) mmol/L BUN 17 (9-20) mg/dL Creatinine 1.0 (0.8-1.5) mg/dL Glucose 63 L (75-100) mg/dL Calcium 9.0 (8.4-10.2) mg/dL
[2019-07-25] MEDS ORDERED: PANTOPRAZOLE 40 MG INJ IV SCH (13:00)
[2019-07-26] MEDS: SODIUM CHLORIDE 0.9% 1000 ML 1,000 ML IV SCH (08:24)
[2019-07-26] MEDS: cefTRIAXone/NS 1 GM/50 ML 1 GM/50 ML BAG IV SCH (10:28)
--- NOTE | 2019-07-26 12:29 | Progress Note ---
Assessment and Plan clinically resolved SBO, stable and afebrile. will advance diet, of tolerates can be discharged home today. No intervention planned. Subjective Date of service: 07/26/19 Patient Reports: Positive: no new complaints, feels better, tolerating liquids well, flatus (no acute events, tolerating liquids well), bowel movement Objective Vital Signs - 12hr 07/26/19 07/26/19 07/26/19 04:24 04:25 07:00 Temperature 97.8 F 97.6 F Pulse Rate 67 60 64 Respiratory 18 16 Rate Blood Pressure 100/72 Blood Pressure 97/64 [Left] O2 Sat by Pulse 95 97 96 Oximetry - General physical appearance well developed, no distress - Respiratory normal expansion, normal respiratory effort - Abdomen soft, not tender, not distended, other (ostomy intackt with fluid and air in bag) - Labs 07/25/19 07:11 07/25/19 07:11
--- NOTE | 2019-07-26 12:53 | Discharge Summary ---
Providers - Providers Date of Admission: 07/24/19 01:12 Date of discharge: 07/26/19 Attending physician: DONALDO POND 07/24/19 00:59 Consult to Physician [CONS] Urgent Comment: Dr. Hahn spoke with Dr. Johnson @ 0058 Consulting Provider: CATHERINE JOHNSON Physician Instructions: Reason For Exam: bowel obstruction, ostomy Primary care physician: MINH MCNEIL Hospitalization Condition: Fair Hospital course: Patient is a 64-year-old male with a past medical history of Crohn's dx who presented to [facility]. Patient states his concerns were lack of output for the past 36 hours from his ileostomy accompanied with abdominal cramping. His ileostomy was placed in 1999 after a perforated bowel. He denied any recent history of fever, diarrhea or melena. He was seen and evaluated in emergency departments and CT of the abdomen showed small bowel obstruction . He was admitted, evaluated by surgeon. patient was managed conservatively initially with nothing by mouth, IV fluids and diet started and advanced as tolerated. Small bowel obstruction resolved and he was discharged home on 07/26/19. Total time spent on discharge, 33 mins Disposition: DC-01 TO HOME OR SELFCARE - Discharge Diagnoses (1) SBO (small bowel obstruction) Status: Acute (2) UTI (urinary tract infection) Status: Acute Core Measure Documentation - Palliative Care Palliative Care/ Comfort Measures: Not Applicable - Core Measures Any of the following diagnoses?: none Exam - Constitutional Vitals: Temp Pulse Resp BP Pulse Ox 97.6 F 64 16 97/64 96 07/26/19 07:00 07/26/19 07:00 07/26/19 07:00 07/26/19 07:00 07/26/19 07:00 Plan Activity: no restrictions Diet: other (GI soft diet, advance as tolerated) Plan of Treatment: 1.Follow up with PCP in 1 week. 2.Follow up with GI Physician in 1 week 3.Follow up with Dr. Johnson, surgeon in 1 week Follow up with: CATHERINE JOHNSON MD [Staff Physician] - 7 Days PRIMARY CARE, [Referring] - 7 Days MINH MCNEIL MD [Primary Care Provider] - 7 Days Prescriptions: cefUROXime [Ceftin] 500 mg PO Q12H 3 Days tablet
[2019-07-26 13:08] VITALS: BP 119/78
== END 2019-07-26 13:35 | disposition home or self-care (01) | DRG 389 ==
LOC: ED 17:33 → 3B-SURG 07-24 01:12
PROVIDERS: ADMIT Internal Medicine; ATTEND Internal Medicine
PROC: 0D9670Z Drainage of Stomach with Drainage Device, Via Natural or Artificial Opening (ICD-10-PCS; principal; 2019-07-25)
DX: K56.609 Unspecified intestinal obstruction, unspecified as to partial versus complete obstruction (principal); K50.90 Crohn's disease, unspecified, without complications; F10.10 Alcohol abuse, uncomplicated; F17.200 Nicotine dependence, unspecified, uncomplicated; Z90.49 Acquired absence of other specified parts of digestive tract; Z80.9 Family history of malignant neoplasm, unspecified; Z82.49 Family history of ischemic heart disease and other diseases of the circulatory system; Z83.3 Family history of diabetes mellitus; Z93.2 Ileostomy status; Z87.442 Personal history of urinary calculi; Z71.6 Tobacco abuse counseling
CPT/HCPCS: 36415; 74177; 80048; 80053; 81001; 83690; 85007; 85025; 87076; 87086; G0378; C9113; J0696; J1170; J2270; J2405; J7030; Q9967

== ENCOUNTER 2022-01-04 10:09 | Emergency (ER) | payer MEDICARE ==
[2022-01-04 11:02] LABS: Basophils % (Auto) 0.2 % (0.0-1.8); Eosinophils % (Auto) 0.1 % (0.0-4.3); Hematocrit 32.6 % (35.5-45.6); Hemoglobin 10.4 gm/dl (11.8-15.2); Lymphocytes # (Auto) 0.6 K/mm3 (1.2-5.4); Lymphocytes % (Auto) 10.1 % (13.4-35.0); Mean Corpuscular HGB Conc 32 % (32-34); Mean Corpuscular Volume 85 fl (84-94); Monocytes # (Auto) 0.5 K/mm3 (0.0-0.8); Monocytes % (Auto) 7.5 % (0.0-7.3); Platelet Count 169 K/mm3 (140-440); Red Blood Count 3.83 M/mm3 (3.65-5.03); Red Cell Distribution Width 14.6 % (13.2-15.2)
[2022-01-04 11:24] LABS: Alanine Aminotransferase 16 units/L (7-56); Albumin 3.9 g/dL (3.9-5); BUN/Creatinine Ratio 13; Blood Urea Nitrogen 16 mg/dL (9-20); Calcium 9.5 mg/dL (8.4-10.2); Hemolysis Index 9
[2022-01-04] MEDS ORDERED: SODIUM CHLORIDE 0.9% 1000 ML 1,000 ML IV ONE (11:58)
[2022-01-04] MEDS ORDERED: MORPHINE 4 MG/1 ML INJ IV ONE ×2 (11:58→14:26)
[2022-01-04] MEDS ORDERED: ONDANSETRON 4 MG/2 ML INJ IV ONE (11:58)
--- NOTE | 2022-01-04 12:04 | Emergency Department Report ---
ED GI Bleed HPI - General Chief complaint: Rectal Pain Stated complaint: RECTAL BLEEDING/PAIN Time Seen by Provider: 01/04/22 11:40 Source: patient, old records reviewed Mode of arrival: Ambulatory Limitations: No Limitations - History of Present Illness Initial comments: 67-year-old male with a past medical history of Crohn's disease status post colectomy and ileostomy in 1999 for perforated bowel and abscess, SBO here in 2019 resolved with conservative management, and history of kidney stones with stent placement several years ago (which has not been removed due to lack of follow-up) presents to the hospital with complaints of rectal pain and bleeding. Yesterday patient developed rectal pain, urinated, and felt discharge from rectal area which was grossly bloody. Patient has not experienced any more blood from rectal since episode yesterday however, he has increased in baseline yellowish rectal discharge. He states symptoms remind him of when he had a intestinal abscess in the past. Patient taken tramadol without improvement. he states yesterday he had night sweats but denies documented fever. He also complains of straining with urination and increased urinary frequency for several months and has concerned about his prostate. He denies dysuria, nausea, vomiting, bloody output from ileostomy, or decreased ileostomy output. He does not currently have a surgeon or GI specialist but does follow with a PMD. - Related Data Previous Rx's Medication Instructions Recorded Last Taken Type cefUROXime [Ceftin] 500 mg PO Q12H 3 Days tablet 07/26/19 Unknown Rx HYDROcodone/APAP 5-325 [Aldrich 1 each PO Q6HR PRN #14 tablet 01/04/22 Unknown Rx 5/325] Mesalamine 1,000 mg RC DAILY #10 supp 01/04/22 Unknown Rx cefUROXime [Ceftin] 500 mg PO BID #20 tablet 01/04/22 Unknown Rx metroNIDAZOLE [Flagyl TAB] 500 mg PO TID #30 tablet 01/04/22 Unknown Rx Allergies Allergy/AdvReac Type Severity Reaction Status Date / Time No Known Allergies Allergy Verified 01/04/22 10:30 ED Review of Systems ROS: Stated complaint: RECTAL BLEEDING/PAIN Other details as noted in HPI Comment: All other systems reviewed and negative ED Past Medical Hx - Past Medical History Additional medical history: Chron's - Surgical History Additional Surgical History: Ileostomy s/t Chron's, colectomy. Back surgery - Social History Smoking Status: Current Every Day Smoker - Medications Home Medications: Home Medications Medication Instructions Recorded Confirmed Last Taken Type cefUROXime [Ceftin] 500 mg PO Q12H 3 Days tablet 07/26/19 Unknown Rx HYDROcodone/APAP 5-325 [Aldrich 1 each PO Q6HR PRN #14 tablet 01/04/22 Unknown Rx 5/325] Mesalamine 1,000 mg RC DAILY #10 supp 01/04/22 Unknown Rx cefUROXime [Ceftin] 500 mg PO BID #20 tablet 01/04/22 Unknown Rx metroNIDAZOLE [Flagyl TAB] 500 mg PO TID #30 tablet 01/04/22 Unknown Rx ED Physical Exam - General Limitations: No Limitations - Other Other exam information: General: No acute distress Head: Atraumatic Eyes: normal appearance ENT: Moist mucous membranes Neck: Normal appearance, no midline tenderness Chest: Clear to auscultation bilaterally CV: Regular rate and rhythm Abdomen: Soft, normal bowel sounds, nontender, nondistended, no rebound or guarding, right-sided ileostomy Rectal: Mild external hemorrhoids, tenderness on rectal exam, yellowish discharge noted on digital exam without gross blood. Guaiac negative Back: Normal inspection Extremity: Normal inspection, full range of motion Neuro: Alert O x 3, no facial asymmetry, speech clear, no gross motor sensory deficit Psych: Appropriate behavior Skin: No rash ED Course Vital Signs 01/04/22 10:28 Temperature 98 F Pulse Rate 74 Respiratory 16 Rate Blood Pressure 107/67 [Left] O2 Sat by Pulse 100 Oximetry - Consultations Consultation #1: 01/04/22 13:47 case d/w DR Carty GI, rec mesalamine supp and flagyl x 10 days. f/u in office rec. ED Medical Decision Making - Lab Data Result diagrams: 01/04/22 10:52 01/04/22 10:52 Lab Results 01/04/22 01/04/22 01/04/22 Range/Units 10:52 10:52 13:21 WBC 6.2 (4.5-11.0) K/mm3 RBC 3.83 (3.65-5.03) M/mm3 Hgb 10.4 L (11.8-15.2) gm/dl Hct 32.6 L (35.5-45.6) % MCV 85 (84-94) fl MCH 27 L (28-32) pg MCHC 32 (32-34) % RDW 14.6 (13.2-15.2) % Plt Count 169 (140-440) K/mm3 Lymph % (Auto) 10.1 L (13.4-35.0) % [place] % (Auto) 7.5 H (0.0-7.3) % Eos % (Auto) 0.1 (0.0-4.3) % Baso % (Auto) 0.2 (0.0-1.8) % Lymph # (Auto) 0.6 L (1.2-5.4) K/mm3 [place] # (Auto) 0.5 (0.0-0.8) K/mm3 Eos # (Auto) 0.0 (0.0-0.4) K/mm3 Baso # (Auto) 0.0 (0.0-0.1) K/mm3 Seg Neutrophils % 82.1 H (40.0-70.0) % Seg Neutrophils # 5.1 (1.8-7.7) K/mm3 Sodium 136 L (137-145) mmol/L Potassium 4.3 (3.6-5.0) mmol/L Chloride 105.5 (98-107) mmol/L Carbon Dioxide 21 L (22-30) mmol/L Anion Gap 14 mmol/L BUN 16 (9-20) mg/dL Creatinine 1.2 (0.8-1.3) mg/dL Estimated GFR > 60 ml/min BUN/Creatinine Ratio 13 % Glucose 178 H (75-100) mg/dL Calcium 9.5 (8.4-10.2) mg/dL Total Bilirubin 0.40 (0.1-1.2) mg/dL AST 26 (5-40) units/L ALT 16 (7-56) units/L Alkaline Phosphatase 69 (35-129) units/L Total Protein 7.5 (6.3-8.2) g/dL Albumin 3.9 (3.9-5) g/dL Albumin/Globulin Ratio 1.1 % Urine Color Straw (Yellow) Urine Turbidity Hazy (Clear) Urine pH 7.0 (5.0-7.0) Ur Specific [place] 1.030 (1.003-1.030) Urine Protein 30 mg/dl (Negative) mg/dL Urine Glucose (UA) Neg (Negative) mg/dL Urine Ketones Neg (Negative) mg/dL Urine Blood Mod (Negative) Urine Nitrite Neg (Negative) Urine Bilirubin Neg (Negative) Urine Urobilinogen < 2.0 (<2.0) mg/dL Ur Leukocyte Esterase Lg (Negative) Urine WBC (Auto) 146.0 H (0.0-6.0) /HPF Urine RBC (Auto) 22.0 (0.0-6.0) /HPF U Epithel Cells (Auto) 3.0 (0-13.0) /HPF Urine Bacteria (Auto) 1+ (Negative) /HPF Urine Mucus Few /HPF - Radiology Data Radiology results: report reviewed CT ABDOMEN AND PELVIS WITH CONTRAST HISTORY: rectal pain, bleed, hx chrons/colectomy/ileostomy 100 ml omni 350 COMPARISON: Prior CT on 07/23/2019 TECHNIQUE: Routine abdominal and pelvic CT exam performed following intravenous contrast administration.. All CT scans at this location are performed using CT dose reduction for ALARA by means of automated exposure control. FINDINGS: CT ABDOMEN: Lung Bases: No significant abnormality. Liver: Stable attenuation area in the anterior left hepatic lobe, probable flash filling hemangioma versus transient hepatic attenuation difference. Biliary: No significant abnormality. Spleen: Stable small splenic cysts. Pancreas: No significant abnormality. Adrenals: No significant abnormality. Kidneys: Right-sided ureteral stent in place. Nonobstructing 1 cm stone in the right kidney. No hydronephrosis. Large 1.5 severe stone in the left kidney. Lymphatics: No lymphadenopathy. Vasculature: No significant abnormality. Bowel/Peritoneum: Right lower quadrant ostomy again seen. No obstruction. There is rectal wall thickening and edema. There is no free air or fluid collection. CT PELVIC: : There are multiple large stones layering in the bladder measuring up to 3 cm. Prostate is moderately enlarged. Lymphatics: No lymphadenopathy. Osseous Structures: No aggressive appearing osseous lesions. Additional Findings: None IMPRESSION: 1. Rectal wall thickening and edema suggesting proctitis. No obstruction or fluid collection. No free air. 2. Multiple large bladder stones and bilateral intrarenal stones. No hydronephrosis. - Medical Decision Making 67-year-old male presents to the hospital rectal pain. CT findings suggestive of proctitis. No signs of sepsis, leukocytosis, or fever. Also incidental findings of UTI, retained stent, kidney and bladder stones. Patient has had ureteral stent for several years (stent was present in [address] Patient has not followed up with urology as directed. He is in the process of making an appointment with his urologist Dr. Soto ([facility] in [place]). Patient is able to urinate spontaneously. He will be treated with antibiotics for proctitis, UTI, anti-inflammatories for proctitis, and pain medication. Outpatient follow-up with GI and urology option an alternative urology option will be provided. Pain improved with ED treatment. Critical Care Time: No Critical care attestation.: If time is entered above; I have spent that time in minutes in the direct care of this critically ill patient, excluding procedure time. ED Disposition Clinical Impression: Proctitis, Retained ureteral stent, UTI (urinary tract infection), Kidney stones, Bladder stones Disposition: 01 HOME / SELF CARE / HOMELESS Is pt being admited?: No Does the pt Need Aspirin: No Condition: Stable Instructions: Kidney Stones, [id number], Proctitis, Urinary Tract Infection, Adult Additional Instructions: Take the medication as prescribed. It is very important that you follow-up with a urologist and a GI doctor to continue management of your current issues. You may follow-up with Dr. Soto or the alternative urologist provided. Return if symptoms worsen as indicated by your discharge instructions. You were provided a copy of your lab work and your CAT scan from today's visit. Please present these to your doctors during your follow-up visits. Prescriptions: cefUROXime [Ceftin] 500 mg PO BID #20 tablet metroNIDAZOLE [Flagyl TAB] 500 mg PO TID #30 tablet Mesalamine 1,000 mg RC DAILY #10 supp HYDROcodone/APAP 5-325 [Aldrich 5/325] 1 each PO Q6HR PRN #14 tablet PRN Reason: Pain Referrals: JARRET SOTO MD [Staff Physician] - 3-5 Days (urology ) BISHOP PRINGLE MD [Staff Physician] - 3-5 Days (urology ) RACHEL CARTY MD [Staff Physician] - 3-5 Days (GI doctor ) Time of Disposition: 14:35
--- NOTE | 2022-01-04 13:18 | Cat Scan Report ---
CT ABDOMEN AND PELVIS WITH CONTRAST HISTORY: rectal pain, bleed, hx chrons/colectomy/ileostomy 100 ml omni 350 COMPARISON: Prior CT on 07/23/2019 TECHNIQUE: Routine abdominal and pelvic CT exam performed following intravenous contrast administrat ion.. All CT scans at this location are performed using CT dose reduction for ALARA by means of autom ated exposure control. FINDINGS: CT ABDOMEN: Lung Bases: No significant abnormality. Liver: Stable attenuation area in the anterior left hepatic lobe, probable flash filling hemangioma v ersus transient hepatic attenuation difference. Biliary: No significant abnormality. Spleen: Stable small splenic cysts. Pancreas: No significant abnormality. Adrenals: No significant abnormality. Kidneys: Right-sided ureteral stent in place. Nonobstructing 1 cm stone in the right kidney. No hydro nephrosis. Large 1.5 severe stone in the left kidney. Lymphatics: No lymphadenopathy. Vasculature: No significant abnormality. Bowel/Peritoneum: Right lower quadrant ostomy again seen. No obstruction. There is rectal wall thicke aminta and edema. There is no free air or fluid collection. CT PELVIC: : There are multiple large stones layering in the bladder measuring up to 3 cm. Prostate is moderat janis enlarged. Lymphatics: No lymphadenopathy. Osseous Structures: No aggressive appearing osseous lesions. Additional Findings: None IMPRESSION: 1. Rectal wall thickening and edema suggesting proctitis. No obstruction or fluid collection. No free air. 2. Multiple large bladder stones and bilateral intrarenal stones. No hydronephrosis. Signer Name: Richard Swenson MD Signed: 01/04/2022 1:14 PM Workstation Name: [employer]
[2022-01-04] MEDS ORDERED: metroNIDAZOLE 500 MG TAB PO ONE (13:37)
[2022-01-04 13:41] LABS: Bacteria,Urine 1+ /HPF (Negative); Bilirubin,Urine NEG (Negative); Blood,Urine MOD (Negative); Color,Urine Straw (Yellow); Mucus,Urine FEW /HPF; Urobilinogen,Urine < 2.0 mg/dL (<2.0)
[2022-01-04 15:45] VITALS: BP 128/63
== END 2022-01-04 15:43 | disposition home or self-care (01) ==
LOC: ED 10:09
DX: T83.192A Other mechanical complication of indwelling ureteral stent, initial encounter (principal); K62.89 Other specified diseases of anus and rectum; N39.0 Urinary tract infection, site not specified; N20.0 Calculus of kidney; N21.0 Calculus in bladder; K50.90 Crohn's disease, unspecified, without complications; Z98.890 Other specified postprocedural states; F17.290 Nicotine dependence, other tobacco product, uncomplicated; Y84.9 Medical procedure, unspecified as the cause of abnormal reaction of the patient, or of later complication, without mention of misadventure at the time of the procedure; Y92.89 Other specified places as the place of occurrence of the external cause
CPT/HCPCS: 36415; 74177; 80053; 81001; 82271; 85025; 96361; 96374; 96375; 99284; J2270; J2405; J7030; Q9967